=== PATIENT | female | born 1985 | race Caucasian/White ===

== ENCOUNTER 2017-04-18 12:30 | Emergency (ER) | payer SELFPAY ==
[2017-04-18 13:13] LABS: #Basophils 0.1 thou/uL (0.0-0.2); #Eosinphils 0.4 thou/uL (0.0-0.7); #Lymphocytes 3.2 thou/uL (1.20-3.40); #Monocytes 0.6 thou/uL (0.11-0.59); %Basophils 1.1 % (0.0-1.0); %Eosinophils 4.3 % (0.0-10.0); %Lymphocytes 34.1 % (21.0-51.0); %Monocytes 6.8 % (0.0-10.0); Hematocrit 45.2 % (36.0-47.0); Mean Platelet Volume 6.8 fL (7.4-10.4); Red Blood Cell (RBC) Count 4.55 mill/uL (4.20-5.40); White Blood Cell (WBC) Count 9.4 thou/uL (4.8-10.8)
[2017-04-18 13:26] LABS: Bilirubin Negative (Negative); Blood, Urine Small (Negative); Glucose, Urine (Dipstick) Negative (Negative); Ketone, Urine Trace mg/dL (Negative); Nitrite Negative (Negative); Protein, Urine (Dipstick) Negative (Neg-Trace)
[2017-04-18 13:28] LABS: Bacteria/HPF 2+ HPF (None Seen); Hyaline Casts/LPF 4-6 HYALINE CAST LPF (0-3 Hyaline); Squamous Epithelial 21-50 HPF (0-3)
[2017-04-18 13:33] LABS: ALT (SGPT) 72 U/L (8-55); AST (SGOT) 48 U/L (5-34); Alkaline Phosphatase 139 U/L (40-150); Anion Gap 12 mmol/L (10-20); BUN (Urea Nitrogen) 14 mg/dL (7.0-18.7); Bilirubin, Total 0.5 mg/dL (0.2-1.2); Calc. Creatinine Clearance 0 mL/min (70-130); Calcium 9.1 mg/dL (7.8-10.44); Carbon Dioxide 23 mmol/L (22-29); Chloride 104 mmol/L (98-107); Estimated GFR-MDRD 74; Globulin 3.7 g/dL (2.4-3.5); Lipase 34 U/L (8-78); Protein, Total 7.5 g/dL (6.0-8.3)
--- NOTE | 2017-04-18 16:33 | ULT ---
ULTRASOUND PELVIC ULTRASOUND TRANSVAGINAL DOPPLER DUPLEX: HISTORY: 31-year-old female with pelvic pain and irregular menses. TECHNIQUE: Transabdominal transducer used to evaluate intrapelvic contents using the urinary bladder as an acou stic window. Endovaginal transducer used to visualize intrapelvic contents in greater detail. Color flow Doppler and Pulsed Doppler spectral waveform analysis of ovaries. FINDINGS: Uterus is normal in size and shape. Endometrial stripe is of normal thickness. No uterine leiomyoma is identified. Bilateral ovaries are normal in size. Blood flow is demonstrated in both ovaries. No ovarian cyst (defined as 2 cm or greater) is identified. No free fluid is in the cul-de-sac. There is an IUD, positioned asymmetrically to the right side within the uterus. IMPRESSION: 1. Intrauterine device positioned to the right side within the uterus. 2. Otherwise, negative. sandy POS: [facility]
== END 2017-04-18 17:12 | disposition home or self-care (01) ==
LOC: ERS 12:30
DX: N39.0 Urinary tract infection, site not specified (principal); A63.0 Anogenital (venereal) warts; R74.0 Nonspecific elevation of levels of transaminase and lactic acid dehydrogenase [LDH]; F32.9 Major depressive disorder, single episode, unspecified; F17.210 Nicotine dependence, cigarettes, uncomplicated
CPT/HCPCS: 36415; 76856; 80053; 81003; 81015; 81025; 83690; 85025; 87491; 87591